=== PATIENT | female | born 1945 | race Caucasian/White ===

== ENCOUNTER 2018-12-13 12:19 | Inpatient (IN) ==
[2018-12-13] MEDS ORDERED: MORPHINE IV ONE (14:05)
[2018-12-13] MEDS ORDERED: NS 1,000 ML IV ONE (14:05)
[2018-12-13] MEDS ORDERED: ZOFRAN IV ONE (14:06)
[2018-12-13 14:38] LABS: BASO# 0.02 X1000 (0.0-0.2); BASO% 0.2 % (0.0-0.8); EOS# 0.09 X1000 (0.0-0.7); EOS% 0.8 % (0.0-10.0); HEMATOCRIT 39.5 % (37.0-47.0); HEMOGLOBIN 13.2 g/dL (12.0-16.0); IMM GRAN# 0.02 X1000 (0.0-0.04); IMM GRAN% 0.2 % (0.0-0.5); LYMPH# 1.17 X1000 (1.2-3.4); LYMPH% 9.8 % (20.5-51.1); MCH 29.7 PG (27-31); MCHC 33.4 g/dL (33-37); MCV 88.8 FL (81-99); MONO# 0.74 X1000 (0.11-0.59); MONO% 6.2 % (1.7-9.3); MPV 12.6 FL (7.4-10.4); NEUT# 9.93 X1000 (1.4-6.5); NEUT% 82.8 % (42.2-75.2); PLT 182 X1000 (130-400); RBC 4.45 XMIL (4.2-5.4); RDW 13.9 % (11.5-14.5); WBC 11.97 X1000 (4.8-10.8)
[2018-12-13 14:41] LABS: INR 1.03
[2018-12-13 14:42] LABS: PTT 32.9 Seconds (22.3-41.8)
[2018-12-13 14:44] LABS: CALCIUM 9.8 mg/dL (8.8-10.2); CREATININE 1.1 mg/dL (0.5-0.9); POTASSIUM 3.3 mmol/L (3.5-5.1)
--- NOTE | 2018-12-13 15:01 | Diag Imaging Result Doc PS360 ---
EXAM: CT HEAD W/O CONTRAST INDICATION: STRUCK HEAD IN FALL TECHNIQUE: This exam was performed using automated exposure control, adjustment of mA or kV according to patient size, and/or use of iterative reconstruction technique. COMPARISON: 10/12/2018 FINDINGS: There is right frontal lobe encephalomalacia and a couple of chronic lacunar infarcts involving the right basal ganglion and right periventricular white matter, stable. There is no definite acute infarct given the limited sensitivity of CT versus MRI. There is no discrete intracranial mass, mass effect, or intracranial hemorrhage. Surrounding soft tissues are grossly unremarkable. The calvaria is intact. IMPRESSION: Stable chronic changes as described. No evidence of acute intracranial pathology. Electronically signed by Ramakrishna Chawla 12/13/2018 2:58 PM
--- NOTE | 2018-12-13 15:05 | Diag Imaging Result Doc PS360 ---
EXAM: XRAY PELVIS W/HIP 2-3VW LT INDICATION: fall, injury TECHNIQUE: 3 views COMPARISON: None. FINDINGS: There is an acute fracture through the left femoral neck with mild proximal displacement of the femoral shaft. The femoral head remains articulated with the acetabulum. No other fracture is identified. Surrounding soft tissues are grossly unremarkable. IMPRESSION: Left femoral neck fracture as described. Electronically signed by Ramakrishna Chawla 12/13/2018 3:02 PM
--- NOTE | 2018-12-13 15:07 | Diag Imaging Result Doc PS360 ---
EXAM: CHEST-PORTABLE INDICATION: LEFT HIP FX TECHNIQUE: One view COMPARISON: 10/22/2015 FINDINGS: There are a few stable old healed rib fractures on the left. The lungs are grossly clear. There is no discrete pleural fluid collection or pneumothorax. The cardiomediastinal silhouette and central vasculature are grossly unremarkable. IMPRESSION: No evidence of acute pathology by plain radiograph. Electronically signed by Ramakrishna Chawla 12/13/2018 3:04 PM
[2018-12-13] MEDS ORDERED: KLOR-CON PO ONE (16:04)
[2018-12-13] MEDS ORDERED: LOVENOX SUBQ SCH (18:00)
[2018-12-13 19:05] LABS: BILIRUBIN URINE NEGATIVE (NEGATIVE); BLOOD URINE 4+ (NEGATIVE); CLARITY VERY CLOUDY (CLEAR); COLOR YELLOW; GLUCOSE URINE NEGATIVE (NEGATIVE); KETONE URINE NEGATIVE (NEGATIVE); LEUKOCYTES URINE 2+ (NEGATIVE); NITRITE URINE POSITIVE (NEGATIVE); PROTEIN URINE 1+(30 mg/dL) mg/dL (NEGATIVE); SP GRAVITY URINE 1.005; UROBILINOGEN URINE NORMAL
[2018-12-13 19:10] LABS: URINE RBC TNTC /HPF (<10); URINE WBC TNTC /HPF (<10)
[2018-12-13 19:11] LABS: URINE BACTERIA 4+ /HFP; URINE CAST NONE SEEN /LPF; URINE CRYSTAL NONE SEEN /HPF; URINE YEAST NONE SEEN /HPF
[2018-12-13 19:14] LABS: URINE SOURCE CATH
--- NOTE | 2018-12-13 22:25 | HISTORY AND PHYSICAL ---
CHIEF COMPLAINT: Fall with left hip injury. HISTORY OF PRESENT ILLNESS: The patient is a 73-year-old female who presents to the emergency department stating that she had spent the night at her sister's. She got up in the middle of the night to go to the restroom and slipped on the floor. States that she fell and immediately felt a pop and a crack sensation in her left hip. Noted that the pain was too severe, and she was not able to get up after that. REVIEW OF SYSTEMS: Denies any cough, congestion, fevers, chills. Denies dysuria, frequency, urgency, hesitancy. Denies any loss of bladder or bowel. Denies any headaches, blurred vision, changes in vision. Denies any focalized numbness, tingling, weakness. Does have pain in her left lower extremity preventing her from moving. PAST MEDICAL HISTORY: Significant for chronic pain, reflux, fibromyalgia, depression, history of CVA. PAST SURGICAL HISTORY: She has had a cholecystectomy and tonsillectomy. FAMILY HISTORY: Noncontributory. SOCIAL HISTORY: Does not smoke or drink. PHYSICAL EXAMINATION: VITAL SIGNS: Reviewed and stable. Temperature 97.6 degrees, pulse 73, respiratory 18, BP 115/76, saturation 95% on room air. GENERAL: The patient is in no current respiratory distress. Very pleasant to talk with. HEENT: Normocephalic. NECK: Supple. CARDIOVASCULAR: Regular rate. CHEST: Clear, nonlabored. ABDOMEN: Soft, nondistended. EXTREMITIES: She moves all extremities well except for the left lower extremity which is shortened and externally rotated. Does have good pulses distally. NEUROLOGIC: No focal changes. LABORATORIES: CBC and CMP essentially normal with potassium at 3.3. ASSESSMENT: 1. Hyperkalemia. 2. Acute fracture through the left femoral neck. 3. Chronic pain. 4. Others. PLAN: We will admit the patient to the hospital. Consult Orthopedics as she will need to have surgical intervention. Continue pain control. Further orders as needed. cc: Jay Ray MD
[2018-12-13] MEDS: MORPHINE IV PRN (22:30)
[2018-12-14] MEDS: MORPHINE IV PRN ×4 (02:11→12:50)
--- NOTE | 2018-12-14 02:39 | HISTORY AND PHYSICAL ---
ADDENDUM: Patient seen and examined by myself. Full note dictated and discussed with nurse practitioner. Patient presented to the hospital after she was spending night with her sister. She stood up in the middle of the night, went to the restroom, fell and immediately had pain in her left leg. Upon presenting to the ER, she was noted to have a left injured trochanteric hip fracture. We will admit her to the hospital. NPO after midnight. Pain control. Consult [*]. Further orders as needed. cc: Jay Ray MD
[2018-12-14 08:36] LABS: CHLORIDE 107 mmol/L (98-107); POTASSIUM 3.4 mmol/L (3.5-5.1); SODIUM 143 mmol/L (136-145)
[2018-12-14 08:37] LABS: AGAP 8; BUN 10 mg/dL (8-22); CALCIUM 8.8 mg/dL (8.8-10.2); COSMO 284; GLUCOSE 91 mg/dL (70-104); TCO2 28 mmol/L (25-35); TOTAL PROTEIN 5.8 g/dL (6.3-8.3)
[2018-12-14 08:38] LABS: ALKALINE PHOSPHATASE 79 U/L (32-104); GOT 13 U/L (10-30); GPT 5 U/L (10-36); MAGNESIUM 1.7 mg/dL (1.5-2.7)
[2018-12-14 09:28] LABS: HEMATOCRIT 35.4 % (37.0-47.0); HEMOGLOBIN 11.3 g/dL (12.0-16.0); MCH 29.3 PG (27-31); MCHC 31.9 g/dL (33-37); MCV 91.7 FL (81-99); MPV 12.3 FL (7.4-10.4); RBC 3.86 XMIL (4.2-5.4); RDW 14.2 % (11.5-14.5); WBC 9.27 X1000 (4.8-10.8)
[2018-12-14] MEDS ORDERED: VANCOMYCIN IV PER PHARMACY MISC SCH (13:45)
[2018-12-14] MEDS ORDERED: KEFZOL 1 GM/D5W 1 GM/50 ML IVPB ONE (14:01)
[2018-12-14] MEDS ORDERED: FENTANYL ONE (14:05)
[2018-12-14] MEDS ORDERED: DIPRIVAN 1% ONE ×2 (14:29→15:09)
[2018-12-14] MEDS ORDERED: VANCOMYCIN 1,900 MG in NS 500 ML IV ONE (15:00)
[2018-12-14] MEDS ORDERED: MORPHINE IV PRN (15:29)
[2018-12-14] MEDS ORDERED: OXY IR PO PRN (15:29)
--- NOTE | 2018-12-14 15:59 | Diag Imaging Result Doc PS360 ---
EXAM: PELVIS 12/14/2018 HISTORY: post op l hip noam TECHNIQUE: AP pelvis COMMENT: There is a bipolar hip prosthesis on the left. No acute fracture or other bony abnormality is present. IMPRESSION: Postsurgical change. Electronically signed by Mitesh Cavanaugh 12/14/2018 3:57 PM
--- NOTE | 2018-12-14 17:56 | PROGRESS NOTE ---
DATE: 12/14/2018 SUBJECTIVE: Today, Ms. Spain refers to be doing fairly okay. She was seen in the recovery room after left hip surgery. OBJECTIVE: Vital signs: Blood pressure is 151/76, pulse is 100, respiration is 13, temperature is 98.6 degrees. General: Ms. Spain is a 73-year-old female. She is in bed, no distress. HEENT: Mucosa is pink and moist. Anicteric. Acyanotic. Neck: Supple. Chest: Clear to auscultation. Cardiovascular: Regular rate and rhythm. Abdomen: Soft, nontender. Extremities: Distal pulses are present. There is no edema. The left hip has sterile dressing over the lateral aspect of the thigh from the recent surgery. Distal pulses are present. Neurologic: The patient is awake, alert. She is able to move her lower extremities, wiggle the toes. She did have spinal anesthesia for the surgery today. LABORATORY DATA: WBC is 9.27, hemoglobin is 11.3, platelet count of 142,000. Chemistry is also reviewed. Urine does show gram-negative jannie. ASSESSMENT: 1. Left femoral neck fracture after mechanical fall. The patient is status post left total hip replacement. She is immediate postsurgical. She will go through the recovery period and then eventually come to the floor. 2. Chronic pain. 3. Hypokalemia on presentation, improving. 4. Clinical volume depletion. Will continue with gentle hydration. 5. Gastroesophageal reflux disease. We will continue with proton pump inhibitor. 6. Gram-negative jannie urinary tract infection versus asymptomatic bacteriuria. At this point, Ms. Spain herself is not very sure about her urine symptoms. She does have a Pérez catheter. We will go ahead and continue the treatment until we have Infectious Disease and sensitivity, and Ms Spain is fully recovered from surgery and can give us a better history. cc: Delfino Leone MD
[2018-12-14] MEDS: TYLENOL PO SCH ×2 (18:58→22:34)
[2018-12-14] MEDS: KEFZOL 1 GM/D5W 1 GM/50 ML IVPB IV SCH ×2 (19:02→22:34)
--- NOTE | 2018-12-14 19:05 | OPERATIVE NOTE ---
PROCEDURE DATE: 12/14/2018 PREOPERATIVE DIAGNOSIS: Left displaced femoral neck fracture. POSTOPERATIVE DIAGNOSIS: Left displaced femoral neck fracture. PROCEDURE: Left hip hemiarthroplasty. SURGEON: Milton Bustillo MD. SECURITY SOFTWARE ENGINEER: DARNELL Menezes, who was an integral part of the case, helping with all aspects of the case, and helping to increase our OR efficiency greatly. ANESTHESIA: Spinal with light sedation. ESTIMATED BLOOD LOSS: 100 mL. IMPLANTS: DePuy Corail stem size 11 and a 46 head with a 1.5 neck. DISPOSITION: To PACU, hemodynamically stable. INDICATION FOR PROCEDURE: Ms. Spain is a 73-year-old female, who presented to the emergency department yesterday after a fall. She was diagnosed with a displaced femoral neck fracture. I discussed with her about surgical intervention. She expressed understanding and wished to proceed. DESCRIPTION OF PROCEDURE: Ms. Spain was identified in the preoperative holding area. The left hip was marked as correct surgical site. She was then wheeled to the operating room, placed supine on the operating table. All bony prominences well padded. She was induced under spinal anesthesia and light sedation was used. She was then flipped to the right lateral decubitus position. All bony prominences were checked and well padded. Left lower extremity was then prepped with chlorhexidine and gluconate scrub and then ChloraPrep, and draped in normal sterile fashion. Surgical pause was performed. We identified the correct patient, the correct side, and the correct procedure. Preop antibiotics were given. I made a standard approach to the posterior aspect of the hip. Dissection was carried down through the deep fascia into our short external rotators. I took those off the femur. I came down to the capsule. We T'd the capsule, which exposed our fracture really well. I cut the neck a little bit shorter and then used a head extractor, got the head out. We sized it to a 46. We trialed a 46 head and that actually fit really well. I cleaned out the acetabulum of any bony fragments. I then sequentially broached up to a size 11 stem. Actually it was nice and it fit well. We trialed the 46 head and it was actually pretty tight and so we took those components out. I took a little bit more neck down, broached again with a 10 and then back to an 11 and that actually fit better. We then put the trial components, back on, reduced it, and it actually fit really well. She was very stable throughout hip range of motion. I then took the trial components out. Placed the Corail stem, malleted it into position. Engaged the head on the Neil taper. I then reduced it and that was nice and solid. It was very stable throughout all the hip range of motion, and did not feel too tight either. I then repaired the posterior capsule with 0 Vicryl. I then repaired the deep fascia with 0 Vicryl, 2-0 Vicryl for the subcutaneous and ailin on the skin. Island dressing was applied. She was then wheeled from general anesthesia, moved to her own bed and taken to PACU in stable condition. PLAN: Postop, she will be weight bear as tolerated of the left lower extremity. We will get an x- ray in PACU. We will continue to follow. cc: Milton Bustillo MD
[2018-12-14] MEDS: COLACE PO SCH (22:33)
[2018-12-15] MEDS: TYLENOL PO SCH ×3 (06:32→21:56)
[2018-12-15] MEDS: KEFZOL 1 GM/D5W 1 GM/50 ML IVPB IV SCH ×2 (06:32→17:03)
[2018-12-15 07:32] LABS: HEMATOCRIT 32.3 % (37.0-47.0); HEMOGLOBIN 10.4 g/dL (12.0-16.0)
[2018-12-15 08:03] LABS: AGAP 10; BUN 11 mg/dL (8-22); CALCIUM 8.3 mg/dL (8.8-10.2); CHLORIDE 100 mmol/L (98-107); COSMO 276; CREATININE 0.9 mg/dL (0.5-0.9); ESTIMATED GFR > 60; GLUCOSE 119 mg/dL (70-104); POTASSIUM 3.2 mmol/L (3.5-5.1); SODIUM 138 mmol/L (136-145); TCO2 28 mmol/L (25-35)
[2018-12-15] MEDS ORDERED: KLOR-CON PO ONE (08:10)
--- NOTE | 2018-12-15 09:34 | PROGRESS NOTE ---
DATE: 12/15/2018 SUBJECTIVE: Ms. Spain is lying in bed this morning, overall feeling pretty well. OBJECTIVE: Left lower extremity exam: Her dressing is clean, dry, and intact. She has good dorsiflexion and plantar flexion of the foot, and good sensation to light touch to the foot. ASSESSMENT: Status post left hip hemiarthroplasty. PLAN: I think Ms. Spain is doing really well. She is weight bear as tolerated now. Her postoperative x-ray looked great. She can be mobilized and work with therapy getting up to her chair. We will continue to follow. cc: Milton Bustillo MD
[2018-12-15] MEDS: MORPHINE IV PRN ×2 (10:49→17:00)
[2018-12-15] MEDS ORDERED: ROCEPHIN 1 GM in NS 50 ML IV ONE (12:06)
--- NOTE | 2018-12-15 13:56 | PROGRESS NOTE ---
DATE: 12/15/2018 SUBJECTIVE: This morning Ms. Spain refers to be doing a lot better. She is more alert and more cooperative. OBJECTIVE: Vitals: Blood pressure is 102/66, pulse is 89, respirations 14, temperature is 97.4 degrees. General: Ms. Spain is a 73-year-old female she is in bed. She is not in any cardiopulmonary distress. Mucosa is pink and moist. Anicteric. Acyanotic. Neck: Supple. Chest: Clear to auscultation. No crepitations, no rhonchi. Cardiovascular: Regular rate and rhythm. No murmurs, no rubs, no gallops. Abdomen: Soft, nontender. Bowel sounds present. Extremities: No pedal edema. The left hip still has some sterile dressing which looks clean. Distal pulses are present. No neurological deficit. LABORATORY DATA: Hemoglobin is 10.4. Chemistry is also reviewed, potassium is 3.2. This has been replaced. Urine culture is showing Klebsiella pneumoniae. ASSESSMENT: 1. Left femoral neck fracture after mechanical fall, patient is status post left hemiarthroplasty by Dr. Bustillo. Today is day 1 postop. Patient seems to be doing well. She is getting physical therapy. 2. Hypokalemia. Will continue to replace. 3. Clinical volume depletion improving with hydration. 4. Klebsiella pneumoniae urinary tract infection. The patient did have urinary frequency and mild dysuric symptoms and that was 1 of the reasons why she was rushing to the restroom and then fell and had the broken hip. We are going to start the patient on Rocephin for now. cc: Delfino Leone MD
[2018-12-15] MEDS ORDERED: VANCOMYCIN 1,400 MG in NS 250 ML IV SCH (15:00)
[2018-12-15] MEDS: COLACE PO SCH (21:56)
[2018-12-16] MEDS: TYLENOL PO SCH ×4 (05:21→22:42)
[2018-12-16 06:41] LABS: HEMATOCRIT 35.1 % (37.0-47.0); HEMOGLOBIN 11.4 g/dL (12.0-16.0)
[2018-12-16] MEDS: ROCEPHIN 1 GM in NS 50 ML IV SCH (10:05)
[2018-12-16] MEDS: MORPHINE IV PRN (10:09)
--- NOTE | 2018-12-16 14:26 | PROGRESS NOTE ---
DATE: 12/16/2018 SUBJECTIVE: Today Ms. Spain refers to be doing fairly okay. Denies any complaint. She is day 2 post left hip hemiarthroplasty, and she has been tolerating physical therapy. OBJECTIVE: Vitals: Blood pressure is 147/67, pulse is 84, respiration is 16, temperature is 98 degrees. On general exam, Ms. Spain is a 73-year-old female. She is in bed. No distress. Mucosa is pink and moist. Anicteric. Acyanotic. Neck is supple. Chest: Good air entry bilateral. There were no crepitations, no rhonchi. Cardiovascular: Regular rate and rhythm. No murmurs, no rubs, no gallops. Gastrointestinal: Abdomen is soft. It is nontender. Bowel sounds present. Extremities: No pedal edema. Central nervous system: Patient is awake, alert, oriented. There is no focal neurological deficit. Musculoskeletal: There are sterile dressings over the left hip laterally. LABORATORY DATA: Hemoglobin is 11.4. PATIENT MEDICATIONS: Have all been reviewed. ASSESSMENT AND PLAN: 1. Left femoral neck fracture after mechanical fall .patient is status post left hip hemiarthroplasty by Dr. Bustillo. Today is day 2 postoperative. Patient is doing well with physical therapy. 2. Clinical volume depletion. Improved. 3. Klebsiella pneumoniae urinary tract infection. Patient is on ceftriaxone. Today is day 1. In general, the Pérez catheter has been removed. The patient is tolerating physical therapy. Our plan is to get her to rehabilitation on Monday. cc: Delfino Leone MD
[2018-12-16] MEDS: COLACE PO SCH (22:42)
[2018-12-17 06:00] LABS: BASO# 0.01 X1000 (0.0-0.2); BASO% 0.1 % (0.0-0.8); EOS# 0.02 X1000 (0.0-0.7); EOS% 0.2 % (0.0-10.0); HEMATOCRIT 32.4 % (37.0-47.0); HEMOGLOBIN 10.8 g/dL (12.0-16.0); LYMPH# 1.21 X1000 (1.2-3.4); LYMPH% 11.4 % (20.5-51.1); MCH 30.2 PG (27-31); MCHC 33.3 g/dL (33-37); MCV 90.5 FL (81-99); MONO# 0.96 X1000 (0.11-0.59); MONO% 9.1 % (1.7-9.3); MPV 13.1 FL (7.4-10.4); NEUT# 8.37 X1000 (1.4-6.5); NEUT% 79.2 % (42.2-75.2); PLT 151 X1000 (130-400); RBC 3.58 XMIL (4.2-5.4); RDW 13.6 % (11.5-14.5); WBC 10.57 X1000 (4.8-10.8)
[2018-12-17 06:13] LABS: AGAP 10; BUN 11 mg/dL (8-22); CALCIUM 8.8 mg/dL (8.8-10.2); CHLORIDE 104 mmol/L (98-107); COSMO 274; CREATININE 0.8 mg/dL (0.5-0.9); ESTIMATED GFR > 60; GLUCOSE 108 mg/dL (70-104); POTASSIUM 3.4 mmol/L (3.5-5.1); SODIUM 137 mmol/L (136-145); TCO2 23 mmol/L (25-35)
[2018-12-17] MEDS ORDERED: KLOR-CON PO ONE (08:18)
--- NOTE | 2018-12-17 09:12 | PROGRESS NOTE ---
DATE: 12/17/2018 SUBJECTIVE: Ms. Spain is lying in bed this morning. Overall feeling okay. OBJECTIVE: Left lower extremity exam, her dressing is clean, dry, and intact. She is neurovascularly intact. Left lower extremity with good dorsiflexion and plantar flexion of the foot and ankle. Good sensation to light touch to the toes. ASSESSMENT: Status post left hip hemiarthroplasty. PLAN: Ms. Spain is weight bearing as tolerated to left lower extremity. She will work with therapy today, and really get up and moving. Surgical Asst team will be involved for discharge planning. cc: Milton Bustillo MD
[2018-12-17] MEDS: ROCEPHIN 1 GM in NS 50 ML IV SCH (11:50)
[2018-12-17] MEDS: OXY IR PO PRN ×3 (11:50→22:30)
[2018-12-17] MEDS: TYLENOL PO SCH ×3 (11:50→22:30)
[2018-12-17] MEDS: ZOFRAN IV PRN (12:08)
--- NOTE | 2018-12-17 13:15 | PROGRESS NOTE ---
DATE: 12/17/2018 SUBJECTIVE: This morning, Ms. Spain referred to be nauseated and had some headaches. OBJECTIVE: Vital signs: Blood pressure is 148/69, pulse is 89, respiration is 16, temperature is 98 degrees. General: The patient has not had any bowel movement since admission. Ms. Spain is a 73-year-old female. She was sitting up in a chair, not in any distress, but she looks a little sick this morning. HEENT: Mucosa is pink and moist. Anicteric. Acyanotic. Neck: Supple. Chest: Good air entry bilateral. There were no crepitations no rhonchi. Cardiovascular: Regular rate and rhythm. No murmurs, no rubs, no gallops. Abdomen: Soft, nontender. Bowel sounds are present but hypoactive. Extremities: No pedal edema. Neurologic: The patient is awake, alert, oriented. No focal neurological deficit. Musculoskeletal: There is sterile dressing over the left hip laterally. LABORATORY DATA: Hemoglobin is 10.8. Rest of CBC is normal. Chemistry is also reviewed, potassium. The rest of chemistry is completely normal. ASSESSMENT: 1. Left femoral neck fracture after mechanical fall. The patient is status post left hip total hemiarthroplasty by Dr. Bustillo. Today is day 3 postop. The patient is doing well with physical therapy. 2. Clinical volume depletion, improved. 3. Klebsiella pneumoniae urinary tract infection. The patient is on ceftriaxone, today is day 2. We will plan to treat for 3 days. 4. Constipation associated with nauseation. We will treat this symptomatically and with bowel regimen. 5. Hypokalemia. We will replace this. Disposition is pending on rehab availability. cc: Delfino Leone MD [facility]
[2018-12-17] MEDS: MILK OF MAGNESIA PO PRN (17:40)
[2018-12-17] MEDS: COLACE PO SCH (22:29)
[2018-12-17] MEDS: SYSTANE EYE DROPS BOTH EYES PRN (22:30)
[2018-12-18] MEDS: OXY IR PO PRN ×3 (06:03→19:45)
[2018-12-18] MEDS: XARELTO PO SCH (06:03)
[2018-12-18] MEDS: TYLENOL PO SCH ×3 (06:03→16:03)
[2018-12-18] MEDS: MILK OF MAGNESIA PO PRN (11:57)
[2018-12-18] MEDS: ROCEPHIN 1 GM in NS 50 ML IV SCH (11:59)
--- NOTE | 2018-12-18 12:41 | PROGRESS NOTE ---
DATE: 12/18/2018 Patient presented on 12/13/2018 with a left intertrochanteric hip fracture. A 73-year-old presented to the emergency room after a fall. PAST MEDICAL HISTORY: 1. Chronic pain. 2. Gastroesophageal reflux. 3. Fibromyalgia. 4. Depression. 5. History of CVA. PAST SURGICAL HISTORY: Status post cholecystectomy and tonsillectomy, and that is really it. She had a little bit of hyperkalemia on presentation. Surgery done on 12/14/2018, left hip hemiarthroplasty. Seems to have done well. PHYSICAL EXAMINATION: She is sitting up in a chair. Feels pretty good. Denies any pain. Breathing comfortably. Temperature 97.2 degrees, pulse 88, respirations 12, blood pressure 134/73. Pupils are equal and round. Lungs are clear in all lung godwin. Cardiovascular Examination: Regular rhythm and rate without murmur or S3. Abdomen is soft. Skin is warm and dry. ASSESSMENT AND PLAN: 1. Left femoral neck fracture after mechanical fall. Patient is status post left hip total hemiarthroplasty per Dr. Bustillo. This is postoperative day 4, doing well. Looking for rehab positions. 2. Clinically, volume depletion, which is improved. 3. Klebsiella pneumoniae urinary tract infection, on ceftriaxone. This is day 3 and I think we can stop the antibiotics. 4. Constipation associated with nausea. This is better. Continue her bowel regimen. 5. Hypokalemia. Electrolytes were replaced. 6. Mild blood-loss anemia, postoperative hematocrit 32, hemoglobin 10, MCV is 90, white count is 10,570, platelet count is 151,000. Seems to be doing well. Electrolytes look good. Continue to supplement potassium. cc: Pramod Mari MD
[2018-12-18] MEDS: KLOR-CON PO SCH (16:07)
[2018-12-18] MEDS: SYSTANE EYE DROPS BOTH EYES PRN (19:44)
[2018-12-18] MEDS: COLACE PO SCH (23:02)
[2018-12-19] MEDS: TYLENOL PO SCH ×2 (00:19→07:50)
[2018-12-19] MEDS: OXY IR PO PRN ×2 (00:19→05:43)
[2018-12-19] MEDS: XARELTO PO SCH (05:43)
[2018-12-19] MEDS: KLOR-CON PO SCH (08:04)
[2018-12-19] MEDS: ROCEPHIN 1 GM in NS 50 ML IV SCH (08:04)
--- NOTE | 2018-12-19 12:07 | DISCHARGE SUMMARY ---
ADMISSION DATE: 12/13/2018 DISCHARGE DATE: 12/19/2018 PRIMARY CARE PHYSICIAN: She has no primary care physician. HISTORY AND HOSPITAL COURSE: Reported she had a fall and broke her left hip. A 73-year-old presented to the emergency department stating that she had spent the night with her sister, got up in the middle of the night to go the restroom, slipped on the floor. States she immediately fell and heard a pop and crack in her left hip. The pain was too severe to be able to get up. Past medical history significant for chronic pain, reflux, fibromyalgia, depression, and history of CVA. Was found to have acute left femur fracture, admitted to the hospital and Dr. Bustillo performed a left hip hemiarthroplasty, which she tolerated well, tolerating physical therapy. There was a question whether she had a urinary tract infection with Klebsiella pneumoniae, so she was treated a full 3 days with ceftriaxone. She had a little bit of constipation and was given a bowel regimen and is improved. Her postop labs showed mild acute blood loss anemia. Hematocrit 32, hemoglobin 10, it was stable. DISPOSITION: [place] she was ready go to rehab and she was discharged with milk of magnesia 30 mL as needed, Colace 200 mg at bedtime, Oxy IR p.r.n. q.3 hours p.r.n. pain 5 mg, Klor-Con 40 mEq a day, Xarelto 10 mg a day. cc: Pramod Mari MD
[2018-12-19] MEDS: ZOFRAN IV PRN (12:13)
--- NOTE | 2018-12-19 12:59 | PROVIDER DOCUMENTATION ---
This chart was entered by Mari Barrientos Scribe, acting as scribe for Tomasz Pickett MD. HPI-Musculoskeletal Pain/Inj - GENERAL Chief Complaint: Hip Injury Stated Complaint: fall Time Seen by Provider: 12/13/18 13:25 Source: patient, family (sister at bedside) - HX OF PRESENT ILLNESS-MUSKULOSKELTAL Nature of Presenting Problem: 73 yo F presents to ED after fall at 3am, when trying to go to the restroom. Pt reports L hip pain, fibromialgia, and hx of stroke. Denies HTN, Diabetes. Quality of Pain: reports: aching Severity in ED: moderate Onset/Duration: this morning (0300am) Timing: still present Modifying Factors: improves with: immobilization. worse with: movement, palpation Any recent injury?: Yes (fall ) Locality of Occurance: Home (sisters home) Similar Symptoms Previously?: No Recently seen or treated by another doctor?: No - FALL INJURY Location of Pain/Injury: reports: other (L hip) Reason for Fall: reports: tripped Symptoms prior to fall:: reports: none Loss of Consciousness: no loss of consciousness Injury Associated Symptoms: reports: joint pain (L hip), snap/crack/pop sensation, unable to bear weight, trouble walking. denies: back/neck pain, chest pain, dizziness, headaches, nausea, shortness of breath, vomiting Review of Systems - Adult - REVIEW OF SYSTEMS - ADULT Constitutional: denies: chills, fever, fatique, night sweats Eyes: reports: no symptoms reported Ears, Nose, Mouth & Throat: reports: no symptoms reported Cardiovascular: denies: chest pain, palpitations, syncope Respiratory: denies: shortness of breath, wheezing Gastrointestinal: denies: diarrhea, nausea, vomiting Genitourinary: reports: no symptoms reported Musculoskeletal: reports: see HPI, joint pain (L Hip). denies: back pain, neck pain Integumentary: reports: no symptoms reported Neurological: denies: dizziness/vertigo, headache/migraines, numbness, slurred speech Psychiatric: reports: no symptoms reported Endocrine: reports: no symptoms reported Hematologic/Lymphatic: reports: no symptoms reported Allergic/Immunologic: reports: no symptoms reported All Other Systems: Reviewed and Negative Past History - Adult - PAST MEDICAL HISTORY-ADULT Review of Records: reports: Nursing Assessment Review, Medications Reviewed Major Childhood Illnesses: reports: denies history Gastrointestinal: reports: GERD Musculoskeletal: reports: chronic pain, fibromyalgia Neurological: reports: CVA. denies: stroke deficits Psychiatric: reports: anxiety, depression - PRIOR SURGERIES/PROCEDURES Surgical/Procedure History: reports: cholecystectomy, tonsillectomy, orthopedic (extremity), back/neck - IMMUNIZATION STATUS Childhood Immunizations: See Nurse Assessment Flu Vaccine: See Nurse Assessment - FAMILY HISTORY Family History: reviewed, not pertinent - SOCIAL HISTORY Smoking: non-smoker Substance Use: none/never Alcohol Use Frequency: never Living Situation: family Physical Exam-Injury Related - Physical Exam-Injury Related Initial Vital Signs Reviewed: Yes General Appearance: alert, moderate distress Eyes: PERRL/EOMI, pink conjunctivae Head, Ears, Nose, Mouth & Throat: normocephalic/atraumatic, moist mucous membranes, normal ENT inspection Neck: non-tender, full range of motion, supple Respiratory: lungs clear, normal breath sounds, no pleuratic chest pain, no respiratory distress, no accessory muscle use Cardiovascular: normal peripheral pulses, regular rate, rhythm, no gallop, no murmur Chest/Breast: deferred Abdominal Exam: normal bowel sounds, non tender, soft Female Genitalia/Pelvic Exam: deferred Rectal Exam: deferred Hemoccult Exam: deferred Lymphatic: no adenopathy Extremity: tenderness, other (L hip mobility limited due to pain). negative: normal gait, no calf tenderness, calf tenderness, pulse deficit Integumentary: normal color, warm/dry Neurologic: grossly normal, no motor/sensory deficits Psych/Mental Status: normal mood/affect, normal thought content, normal thought process, oriented x 3 - Glascow Coma Score Best Eye Response ([place]): (4) open spontaneously Best Verbal Response ([place]): (5) oriented Best Motor Response ([place]): (6) obeys commands [place] Total: 15 Progress - PLAN OF CARE/RESULTS Progress/Plan/Lab Results: Vital Signs - 8 hr 12/13/18 13:21 Temperature 97.6 F Pulse Rate 73 Respiratory Rate 18 Blood Pressure 115/076 O2 Sat by Pulse Oximetry 95 Laboratory Results - last 24 hr 12/13/18 12/13/18 12/13/18 14:13 14:13 14:13 WBC 11.97 H RBC 4.45 Hgb 13.2 Hct 39.5 MCV 88.8 MCH 29.7 MCHC 33.4 RDW Std Deviation 13.9 Plt Count 182 MPV 12.6 H Immature Gran % (Auto) 0.2 Neut % (Auto) 82.8 H Lymph % (Auto) 9.8 L Anderson % (Auto) 6.2 Eos % (Auto) 0.8 Baso % (Auto) 0.2 Immature Gran # (Auto) 0.02 Neut # (Auto) 9.93 H Lymph # (Auto) 1.17 L Anderson # (Auto) 0.74 H Eos # (Auto) 0.09 Baso # (Auto) 0.02 PT 14.0 INR 1.03 PTT (Actin FS) 32.9 Sodium 144 Potassium 3.3 L Chloride 102 Carbon Dioxide 31 Anion Gap 11 BUN 7 L Creatinine 1.1 H Estimated GFR/1.73 m2 49 BUN/Creatinine Ratio 6 Glucose 106 H Calculated Osmolality 285 Calcium 9.8 Orders Category Date Time Status Pérez Cath Insertion ORDERED Care 12/13/18 14:08 Active CHEST-PORTABLE [RAD] Stat Exams 12/13/18 14:[address] HEAD W/O CONTRAST [CT] Stat Exams 12/13/18 14:17 Completed XRAY PELVIS W/HIP 2-3VW LT [RAD] Stat Exams 12/13/18 14:06 Completed BMP [BASIC METABOLIC PANEL] [CHEM] Stat Lab 12/13/18 14:13 Completed CBC WITH ELECTRONIC DIFF [HEME] Stat Lab 12/13/18 14:13 Completed PROTIME WITH INR [COAG] Stat Lab 12/13/18 14:13 Completed PTT [COAG] Stat Lab 12/13/18 14:[address] W/POSS RFLX CULT [URINALYSIS] Stat Lab 12/13/18 14:19 Ordered 0.9% Sodium Chloride Inj [Ns] 1,000 ml Med 12/13/18 14:05 Discontinued IV 999 mls/hr Morphine Med 12/13/18 14:05 Discontinued 4 mg IV NOW ONE Ondansetron [Zofran] Med 12/13/18 14:06 Discontinued 4 mg IV NOW ONE Potassium Chloride E.r. [Klor-Con] Med 12/13/18 16:04 Discontinued 40 meq PO NOW ONE Result Diagrams: 12/13/18 14:13 12/13/18 14:13 - XRAY 1 XRAY Study: Chest ( EXAM: CHEST-PORTABLE INDICATION: LEFT HIP FX TECHNIQUE: One view COMPARISON: 10/22/2015 FINDINGS: There are a few stable old healed rib fractures on the left. The lungs are grossly clear. There is no discrete pleural fluid collection or pneumothorax. The cardiomediastinal silhouette and central vasculature are grossly unremarkable. IMPRESSION: No evidence of acute pathology by plain radiograph. Electronically signed by Ramakrishna Chawla 12/13/2018 3:04 PM 12/13/18 1504 Interpreting Physician: Ramakrishna Chawla MD Dictated Date/Time: 12/13/18 1503 cc: Tomasz Pickett MD; None,PCP) Impression: See EMR Report ( EXAM: CHEST-PORTABLE INDICATION: LEFT HIP FX TECHNIQUE: One view COMPARISON: 10/22/2015 FINDINGS: There are a few stable old healed rib fractures on the left. The lungs are grossly clear. There is no discrete pleural fluid collection or pneumothorax. The cardiomediastinal silhouette and central vasculature are grossly unremarkable. IMPRESSION: No evidence of acute pathology by plain radiograph. Electronically signed by Ramakrishna Chawla 12/13/2018 3:04 PM 12/13/18 1504 Interpreting Physician: Raamkrishna Chawla MD Dictated Date/Time: 12/13/18 1503 cc: Tomasz Pickett MD; None,PCP) 2 XRAY Study: Pelvis, Hip ( EXAM: XRAY PELVIS W/HIP 2-3VW LT INDICATION: fall, injury TECHNIQUE: 3 views COMPARISON: None. FINDINGS: There is an acute fracture through the left femoral neck with mild proximal displacement of the femoral shaft. The femoral head remains articulated with the acetabulum. No other fracture is identified. Surrounding soft tissues are grossly unremarkable. IMPRESSION: Left femoral neck fracture as described. Electronically signed by Ramakrishna Chawla 12/13/2018 3:02 PM 12/13/18 1502 Interpreting Physician: Ramakrishna Chawla MD Dictated Date/Time: 12/13/18 1501 cc: Tomasz Pickett MD; None,PCP) Impression: See EMR Report ( EXAM: XRAY PELVIS W/HIP 2-3VW LT INDICATION: fall, injury TECHNIQUE: 3 views COMPARISON: None. FINDINGS: There is an acute fracture through the left femoral neck with mild proximal displacement of the femoral shaft. The femoral head remains articulated with the acetabulum. No other fracture is identified. Surrounding soft tissues are grossly unremarkable. IMPRESSION: Left femoral neck fracture as described. Electronically signed by Ramakrishna Chawla 12/13/2018 3:02 PM 12/13/18 1502 Interpreting Physician: Ramakrishna Chawla MD Dictated Date/Time: 12/13/18 1501 cc: Tomasz Pickett MD; None,PCP) - CT/MRI 1 CT Study: Head Impression: See EMR Report ( EXAM: CT HEAD W/O CONTRAST INDICATION: STRUCK HEAD IN FALL TECHNIQUE: This exam was performed using automated exposure control, adjustment of mA or kV according to patient size, and/or use of iterative reconstruction technique. COMPARISON: 10/12/2018 FINDINGS: There is right frontal lobe encephalomalacia and a couple of chronic lacunar infarcts involving the right basal ganglion and right periventricular white matter, stable. There is no definite acute infarct given the limited sensitivity of CT versus MRI. There is no discrete intracranial mass, mass effect, or intracranial hemorrhage. Surrounding soft tissues are grossly unremarkable. The calvaria is intact. IMPRESSION: Stable chronic changes as described. No evidence of acute intracranial pathology. Electronically signed by Ramakrishna Chawla 12/13/2018 2:58 PM 12/13/18 1458 Interpreting Physician: Ramakrishna Chawla MD Dictated Date/Time: 12/13/18 1457 cc: Tomasz Pickett MD; None,PCP) - CONSULTS/PCP/HOSPITALIST Notification #1 *Consult/PCP/Hospitalist*: [email or web address] Time Discussed: 15:16 (PAGING FOR LEFT FEM NECK FX) #2 Consult: DR GRIJALVA Time Discussed: 16:08 Consult Disposition: Admit #3 Consult: DR IZAGUIRRE Time Discussed: 16:41 (TO [facility] IN AM FOR SURGERY) Consult Disposition: other (JUST DISCUSSED SAME INFO WITH DR Andreea GRIJALVA, NPO AFTER MIDNIGHT AND TRANSFER OVER IN AM.) Departure - Departure Date of Disposition Decision: 12/13/18 Time of Disposition Decision: 16:11 DIAGNOSIS: Closed fracture of left hip, Contusion of scalp, Fall Disposition: ADMITTED INPATIENT 09 Certified Medical Emergency: Emergent Condition: Stable Referrals and Follow-Ups: None,PCP [Primary Care Provider] - - Critical Care Note This patient required my direct & personal management of CC.: No Attestation - Physician/ TALON Attestation Patient care was provided by Advanced Practice Provider:: No The physician spent face to face time with patient:: Yes Advanced Practice Provider documentation review:: Supervising physician onsite and consulted in the evaluation and care of this patient. The physician did have a face to face encounter with the patient. This chart was documented by the indicated scribe, (Mari Barrientos Scribe) and accurately reflects the services I performed and decisions made by me, Tomasz Pickett MD, as attested by the provider's signature.
[2018-12-19 13:43] VITALS: BP 156/70
== END 2018-12-19 15:33 | disposition swing bed (61) | DRG 470 ==
LOC: P.ED 12:19 → SUATTDRO 18:23 → EDIPHOLD 18:23 → 4N 12-14 07:48
PROVIDERS: ATTEND Emergency Medicine
CPT/HCPCS: 51702; 70450; 71010; 71045; 72170; 73502; 80048; 80053; 81001; 83735; 85014; 85018; 85025; 85027; 85610; 85730; 87077; 87088; 87186; 88305; 88311; 94761; 94799; 96372; 96374; 96375; 96376; 97110; 97116; 97163; 97530; 99285; A9270; J0690; J0696; J1650; J2270; J2405; J3010; J3370; J7030; J7040